=== PATIENT | female | born 1950 | race Caucasian/White ===

== ENCOUNTER → 2016-06-14 | Outpatient (CLI) | payer OTHER ==
--- NOTE | 2016-06-14 14:49 | DIAGNOSTIC IMAGING REPORT ---
SINUSES MIN 3 VIEWS ROUTINE CLINICAL HISTORY: CHRONIC SINUSITIS COMPARISON STUDY: No previous studies for comparison. FINDINGS: No air-fluid levels are visualized. There is no evidence of significant mucoperiosteal thickening. IMPRESSION: No conventional radiographic evidence of sinusitis Electronically signed by: Matt Rodriguez M.D. 06/14/2016 2:48 PM Dictated Date/Time: 06/14/2016 2:47 PM
== END | disposition home or self-care (01) ==
LOC: C.RADBC 14:25
PROVIDERS: ATTEND Family Medicine
DX: J32.9 Chronic sinusitis, unspecified (principal)